=== PATIENT | male | born 1985 ===

== ENCOUNTER 2020-01-02 20:16 | Emergency (ER) | payer OTHER, SELFPAY ==
[~2020-01-02] VITALS: Ht 170.2 cm; Wt 99.1 kg
[2020-01-02] MEDS ORDERED: ACETAMINOPHEN 500 MG TABLET PO ONE (21:00)
[2020-01-02] MEDS ORDERED: ACETAMINOPHEN 500 MG TABLET ONE (22:35)
--- NOTE | 2020-01-02 22:41 | NUR ---
ROOMED PT, PLACED ON VITALS MONITORS, MEDICATED PER NOV. SWABBED FOR COVID PER PROVIDER ORDER. EMT AT BEDSIDE FOR EKG.
[2020-01-02] MEDS ORDERED: DOXYCYCLINE 100MG TABLET ONE (23:14)
[2020-01-02 23:17] VITALS: BP 115/75
[2020-01-02] MEDS ORDERED: DOXYCYCLINE 100MG TABLET PO ONE (23:30)
== END 2020-01-02 23:30 | disposition home or self-care (01) ==
LOC: ED 23:20
DX: U07.1 COVID-19 (principal); J06.9 Acute upper respiratory infection, unspecified; J18.9 Pneumonia, unspecified organism; R50.9 Fever, unspecified; R51 Headache; R06.02 Shortness of breath; F17.210 Nicotine dependence, cigarettes, uncomplicated
CPT/HCPCS: 71045; 93005; 99285; 99406; U0001